=== PATIENT | female | born 1970 | race Caucasian/White ===

== ENCOUNTER 2022-06-14 06:03 | Day surgery (SDC) | payer SELFPAY ==
[~2022-06-14] VITALS: Ht 157.5 cm; Wt 69.4 kg
[~2022-06-14 06:03] MED LIST: ASCO100013 PO; B COCAP4 PO; CALC600C3 PO; CIDA500T2 PO; CVS-161 PO; EVEN500C2 PO; VITAE40CA PO
[2022-06-14] MEDS ORDERED: LR 1,000 ML IV SCH ×2 (06:30→10:50)
[2022-06-14] MEDS ORDERED: ceFAZolin SOD 2 GM in IV 1 EA IV ONE (06:45)
[2022-06-14] MEDS ORDERED: LIDOCAINE 2% W/EPINEPHRINE 20ML VIAL **PRES FREE As Ordered ONE (07:10)
[2022-06-14] MEDS ORDERED: POVIDONE-IODINE 5% OPHTH PREP SOL 30ML As Ordered ONE (07:11)
[2022-06-14] MEDS ORDERED: fentaNYL 100 MCG/2 ML INJECTION As Ordered ONE ×2 (07:21→09:33)
[2022-06-14] MEDS ORDERED: ONDANSETRON 4MG 2ML VIAL As Ordered ONE (07:21)
[2022-06-14] MEDS ORDERED: propofoL 200 MG/20 ML VIAL As Ordered ONE (07:21)
[2022-06-14] MEDS ORDERED: LIDOCAINE 2% 100MG/5ML SDV (FOR ANES.) As Ordered ONE (07:21)
[2022-06-14] MEDS ORDERED: MIDAZOLAM INJ 2MG/2ML VIAL (J2250 PER 1MG) As Ordered ONE (07:22)
[2022-06-14] MEDS ORDERED: dexameTHASONE 4 MG/ML 1ML VIAL (J1100 PER 1MG) As Ordered ONE (07:42)
[2022-06-14] MEDS ORDERED: ERYTHROMYCIN OPHTH OINT As Ordered ONE (07:45)
[2022-06-14] MEDS ORDERED: LACRILUBE (AKWA TEARS) OPHTH OINT 3.5 GM As Ordered ONE (07:53)
[2022-06-14] MEDS ORDERED: LIDOCAINE 5% OINT 30GM TUBE As Ordered ONE (07:57)
[2022-06-14] MEDS ORDERED: ePHEDrine SULFATE 25 MG/5 ML(5MG/ML) SYRINGE As Ordered ONE (08:13)
[2022-06-14] MEDS ORDERED: METOCLOPRAMIDE INJ 10MG/2ML VIAL (J2765 PER 1) As Ordered ONE (08:14)
[2022-06-14] MEDS ORDERED: diphenhydrAMINE 50MG/ML VIAL (J1200) As Ordered ONE (08:14)
[2022-06-14] MEDS ORDERED: ACETAMINOPHEN 1000MG 100ML IV BTL (OFIRMEV) (J0131 PER 10MG) As Ordered ONE (08:22)
[2022-06-14] MEDS ORDERED: TETRACAINE 0.5% OPHTH SOLN 4ML As Ordered ONE (10:34)
[2022-06-14] MEDS ORDERED: ONDANSETRON 4MG 2ML VIAL IV PRN ×2 (10:50→11:30)
[2022-06-14] MEDS ORDERED: MEPERIDINE INJ 25 MG/ML VIAL (J2175) IV PRN (10:50)
[2022-06-14] MEDS ORDERED: PERC5TAB12 PO (11:15)
[2022-06-14] MEDS ORDERED: METOCLOPRAMIDE INJ 10MG/2ML VIAL (J2765 PER 1) IV PRN (11:30)
[2022-06-14] MEDS: oxyCODONE 5MG TAB PO PRN ×2 (11:34→12:07)
[2022-06-14] MEDS: fentaNYL 100 MCG/2 ML INJECTION IV PRN ×4 (11:40→12:07)
[2022-06-14 13:10] VITALS: BP 159/78
== END 2022-06-14 13:25 | disposition home or self-care (01) ==
LOC: M SDC 06:03
PROVIDERS: ATTEND Plastic Surgery Surgery of the Hand
DX: H02.831 Dermatochalasis of right upper eyelid (principal); H02.834 Dermatochalasis of left upper eyelid; H02.832 Dermatochalasis of right lower eyelid; H02.835 Dermatochalasis of left lower eyelid; Z88.8 Allergy status to other drugs, medicaments and biological substances; Z88.1 Allergy status to other antibiotic agents
CPT/HCPCS: 15821; 15823; 88302; J0131; J0690; J1100; J1200; J2250; J2405; J2765; J3010

== ENCOUNTER 2023-01-03 11:44 | Observation (INO) | payer SELFPAY ==
[~2023-01-03] VITALS: Ht 157.5 cm; Wt 72.0 kg
[~2023-01-03 11:44] MED LIST changes: +PERC5TAB12 PO
[2023-01-03] MEDS ORDERED: LIDOCAINE 2% 100MG/5ML SDV (FOR ANES.) As Ordered ONE (12:02)
[2023-01-03] MEDS ORDERED: MIDAZOLAM INJ 2MG/2ML VIAL As Ordered ONE (12:02)
[2023-01-03] MEDS ORDERED: ONDANSETRON 4MG 2ML VIAL As Ordered ONE (12:02)
[2023-01-03] MEDS ORDERED: fentaNYL 250 MCG/5 ML INJECTION As Ordered ONE (12:02)
[2023-01-03] MEDS ORDERED: ROCURONIUM BROMIDE 50MG/5ML VIAL As Ordered ONE ×2 (12:02→16:49)
[2023-01-03] MEDS ORDERED: propofoL 200 MG/20 ML VIAL As Ordered ONE (12:02)
[2023-01-03] MEDS ORDERED: LR 1,000 ML IV SCH ×3 (12:15→19:40)
[2023-01-03] MEDS ORDERED: ceFAZolin SOD 2 GM in IV 1 EA IV ONE (13:50)
[2023-01-03] MEDS ORDERED: SCOPOLAMINE 1MG TRANSDERMAL PATCH TOP ONE (14:10)
[2023-01-03] MEDS ORDERED: LACRILUBE (AKWA TEARS) OPHTH OINT 3.5GM As Ordered ONE (14:39)
[2023-01-03] MEDS ORDERED: GENTAMICIN SULF 80MG/2ML VIAL As Ordered ONE (14:57)
[2023-01-03] MEDS ORDERED: BUPIVACAINE HCL 0.25% 10ML VIAL As Ordered ONE (14:57)
[2023-01-03] MEDS ORDERED: BUPIVACAINE LIPOSOME/PF 1.3% 20ML VIAL (13.3MG/ML)(EXPAREL) As Ordered ONE (14:57)
[2023-01-03] MEDS ORDERED: LIDOCAINE 1% MDV 20ML VIAL As Ordered ONE (15:22)
[2023-01-03] MEDS ORDERED: EPINEPHrine INJ 1 MG/ML 1ML AMP As Ordered ONE (15:23)
[2023-01-03] MEDS ORDERED: HEPARIN SOD (PORCINE) 5000UNITS/ML 1ML VIAL/SYRINGE As Ordered ONE (15:23)
[2023-01-03] MEDS ORDERED: ACETAMINOPHEN 1000MG 100ML IV BAG As Ordered ONE (16:23)
[2023-01-03] MEDS ORDERED: ePHEDrine SULFATE 25 MG/5 ML(5MG/ML) SYRINGE As Ordered ONE (16:42)
[2023-01-03] MEDS ORDERED: LABETALOL 100MG/20ML VIAL As Ordered ONE (16:51)
[2023-01-03] MEDS ORDERED: SUGAMMADEX SODIUM 500 MG/5 ML VIAL (BRIDION) As Ordered ONE (17:07)
[2023-01-03] MEDS ORDERED: HYDROmorphone HCL 2MG/ML 1ML VIAL As Ordered ONE (17:07)
[2023-01-03] MEDS ORDERED: ONDANSETRON 4MG 2ML VIAL IV PRN ×2 (18:20→19:40)
[2023-01-03] MEDS ORDERED: HYDROMORPHONE HCL 0.5 MG/ 0.5 ML SYRINGE IV PRN (18:20)
[2023-01-03] MEDS ORDERED: oxyCODONE 5MG TAB PO PRN ×2 (18:20→19:40)
[2023-01-03] MEDS ORDERED: METOCLOPRAMIDE INJ 10MG/2ML VIAL IV PRN (18:20)
[2023-01-03] MEDS ORDERED: KETOROLAC TROMETHAMINE 10 MG TAB PO PRN (19:40)
[2023-01-03] MEDS ORDERED: ACETAMINOPHEN TAB 650MG DOSE (2X325MG) PO PRN (19:40)
[2023-01-03] MEDS: fentaNYL 100 MCG/2 ML INJECTION IV PRN ×2 (20:07→20:39)
[2023-01-03 21:00] VITALS: BP 109/59
[2023-01-03 21:30] VITALS: BP 108/59
[2023-01-03 22:00] VITALS: BP 114/63
[2023-01-03 23:00] VITALS: BP 110/65
[2023-01-04] VITALS: BP 100/61
[2023-01-04] MEDS: ceFAZolin SOD 1 GM in D5W MINI-BAG PLUS 50 ML IV SCH ×2 (00:21→10:01)
[2023-01-04 01:00] VITALS: BP 99/59
[2023-01-04 02:00] VITALS: BP 105/64
[2023-01-04 06:00] VITALS: BP 93/54
[2023-01-04] MEDS ORDERED: LR 500 ML IV ONE (06:15)
[2023-01-04 06:31] LABS: HEMATOCRIT 28.2 % (36.0-47.0); HEMOGLOBIN 9.4 g/dl (12.0-15.5); MEAN CORPUSCULAR HEMOGLOBIN 31.1 pg (27.0-33.0); MEAN CORPUSCULAR HGB CONC 33.3 g/dl (32.0-36.5); MEAN CORPUSCULAR VOLUME 93.4 fl (80.0-96.0); PLATELET COUNT, AUTOMATED 223 10^3/uL (150-450); RED BLOOD COUNT 3.02 10^6/uL (4.00-5.40); WHITE BLOOD COUNT 12.3 10^3/uL (4.0-10.0)
[2023-01-04] MEDS ORDERED: oxyCODONE 5MG TAB PO ONE (09:00)
[2023-01-04] MEDS ORDERED: IRON65TA2 PO (11:56)
[2023-01-04] MEDS ORDERED: OXYC-517 PO (11:56)
== END 2023-01-04 14:35 | disposition home or self-care (01) ==
LOC: M SDC 11:44 → M MS5PR 19:38 → INTOOBSV 19:38 → M MS5PR 21:00
PROVIDERS: ADMIT Plastic Surgery Surgery of the Hand; ATTEND Plastic Surgery Surgery of the Hand
DX: M54.07 Panniculitis affecting regions of neck and back, lumbosacral region (principal); Z88.1 Allergy status to other antibiotic agents; Z88.8 Allergy status to other drugs, medicaments and biological substances; Z91.018 Allergy to other foods; Z79.899 Other long term (current) drug therapy
CPT/HCPCS: 15830; 15847; 15877; 36415; 85027; 88300; 96361; 96365; 96366; 96375; C9290; J0131; J0171; J0690; J1100; J1170; J1580; J1644; J2250; J2405; J2765; J3010; S0020

== ENCOUNTER → 2024-04-19 | Outpatient (REF) | payer SELFPAY ==
[~2024-04-19] MED LIST changes: +IRON65TA2 PO; +OXYC-517 PO
== END ==
LOC: M LAB REF 17:24
PROVIDERS: ATTEND Plastic Surgery Surgery of the Hand
DX: L90.5 Scar conditions and fibrosis of skin (principal); Z48.817 Encounter for surgical aftercare following surgery on the skin and subcutaneous tissue

== ENCOUNTER 2025-01-16 07:17 | Day surgery (SDC) | payer SELFPAY ==
[~2025-01-16] VITALS: Ht 157.5 cm; Wt 74.8 kg
[~2025-01-16 07:17] MED LIST changes: +AZEL15GE2; +EPIN0.3I11; +ESTR0.1C5; +FERR325T3 PO; +FLUTISP; +LORA-1041 PO; +LR 1,000 ML IV SCH
[2025-01-16] MEDS ORDERED: LIDOCAINE 2% 100MG/5ML SDV (FOR ANES.) As Ordered ONE (09:11)
[2025-01-16] MEDS ORDERED: ONDANSETRON 4MG 2ML VIAL As Ordered ONE (09:11)
[2025-01-16] MEDS ORDERED: SEVOFLURANE INHAL SOLN 250 ML BTL As Ordered ONE (09:11)
[2025-01-16] MEDS ORDERED: propofoL 200 MG/20 ML VIAL As Ordered ONE (09:11)
[2025-01-16] MEDS ORDERED: ACETAMINOPHEN 1000MG/100ML IV BAG As Ordered ONE (09:11)
[2025-01-16] MEDS ORDERED: fentaNYL 100 MCG/2 ML INJECTION As Ordered ONE (09:13)
[2025-01-16] MEDS ORDERED: MIDAZOLAM INJ 2MG/2ML VIAL As Ordered ONE (09:13)
[2025-01-16] MEDS: ceFAZolin SOD 2 GM IV ONCE IV ONE (10:06)
[2025-01-16] MEDS ORDERED: SUGAMMADEX SODIUM 500 MG/5 ML VIAL (BRIDION) As Ordered ONE (10:34)
[2025-01-16] MEDS ORDERED: LACRILUBE (AKWA TEARS) OPHTH OINT 3.5GM As Ordered ONE (10:34)
[2025-01-16] MEDS ORDERED: METOCLOPRAMIDE INJ 10MG/2ML VIAL As Ordered ONE (10:58)
[2025-01-16] MEDS ORDERED: ePHEDrine SULFATE 25 MG/5 ML(5MG/ML) SYRINGE As Ordered ONE (10:59)
[2025-01-16] MEDS: POVIDONE-IODINE 5% OPHTH PREP SOL 30ML As Ordered ONE (11:06)
[2025-01-16] MEDS: POLYSPORIN OPHTH OINT 3.5 GM As Ordered ONE (11:07)
[2025-01-16] MEDS: TETRACAINE 0.5% OPHTH SOLN 4ML As Ordered ONE (11:08)
[2025-01-16] MEDS: LIDOCAINE 2% W/EPINEPHRINE 20ML VIAL **PRES FREE As Ordered ONE (12:11)
[2025-01-16] MEDS ORDERED: LR 1,000 ML IV SCH (12:25)
[2025-01-16] MEDS ORDERED: ONDANSETRON 4MG 2ML VIAL IV PRN (12:25)
[2025-01-16] MEDS ORDERED: fentaNYL 100 MCG/2 ML INJECTION IV PRN (12:25)
[2025-01-16] MEDS: oxyCODONE 5MG TAB PO PRN (13:28)
[2025-01-16 13:52] VITALS: BP 158/84; TEMP 97.3; O2SAT 93
== END 2025-01-16 14:25 | disposition home or self-care (01) ==
LOC: M SDC 07:17
PROVIDERS: ATTEND Plastic Surgery Surgery of the Hand
DX: L90.5 Scar conditions and fibrosis of skin (principal); L91.0 Hypertrophic scar; D22.39 Melanocytic nevi of other parts of face; D22.4 Melanocytic nevi of scalp and neck; Z88.1 Allergy status to other antibiotic agents; H02.59 Other disorders affecting eyelid function; Z88.8 Allergy status to other drugs, medicaments and biological substances; Z79.899 Other long term (current) drug therapy; R11.2 Nausea with vomiting, unspecified
CPT/HCPCS: 11420; 11440; 11441; 11442; 67343; 88302; 88305; J0131; J0690; J1100; J2250; J2405; J2765; J3010